=== PATIENT | male | born 1975 | race Caucasian/White ===

== ENCOUNTER → 2016-09-26 | Outpatient (CLI) | payer OTHER ==
[~2016-09-26] MED LIST: AMLO-110 PO; ATOR-14 PO; ATOR-22 PO; BUPR-267 PO; CITA20TA9 PO; CLOB-65 EXT; FLUO0.0121 TOP; FOLI1TAB7 PO; FOLIC ACID PO; GARL400T4 PO; LSN/2025 PO; OMEG10007 PO; OMEG12006 PO; OMEP20CA9 PO
--- NOTE | 2016-09-26 09:00 | DIAGNOSTIC IMAGING REPORT ---
GI SERIES W/AIR ROUTINE CLINICAL HISTORY: Gastroesophageal reflux disease. COMPARISON STUDY: None. FLUOROSCOPY TIME: 2.1 minutes. 21 images submitted. FINDINGS: The patient swallowed barium without difficulty. The esophagus is normal in course, caliber, motility. No hiatus hernia. No gastroesophageal reflux. The duodenal bulb and duodenal C sweep are within normal limits. Suggestion of mild gastric fold thickening. No gastric ulcerations. IMPRESSION: 1. No hiatus hernia. No gastroesophageal reflux demonstrated during the examination. 2. Suggestion of mild gastric fold thickening. This could represent a mild gastritis. Electronically signed by: Chris Bush M.D. 09/26/2016 8:27 AM Dictated Date/Time: 09/26/2016 8:24 AM
== END | disposition home or self-care (01) ==
LOC: C.RAD 07:47
PROVIDERS: ATTEND Surgery
DX: K21.9 Gastro-esophageal reflux disease without esophagitis (principal); R93.3 Abnormal findings on diagnostic imaging of other parts of digestive tract

== ENCOUNTER → 2016-11-25 | Day surgery (SDC) | payer OTHER ==
[2016-11-21 12:42] VITALS: Ht 175.3 cm; Wt 90.9 kg
[~2016-11-25] VITALS: Ht 175.3 cm; Wt 90.9 kg
[~2016-11-25] MED LIST changes: -ATOR-14 PO; -BUPR-267 PO; -CLOB-65 EXT; -FLUO0.0121 TOP; -FOLIC ACID PO; -GARL400T4 PO; +LIDOCAINE HCL 2% 2 ML VIAL (20MG/ML) ONE; +MIDAZOLAM HCL 1 MG/ML 2ML VIAL ONE; -OMEG12006 PO; +ONDANSETRON INJ 2 MG/ML 2 ML VIAL ONE; +PROPOFOL IV EMULSION 10 MG/ML 20 ML VIAL IV ONE; +SODIUM CHLORIDE 0.9% 500ML 500 ML IV ONE
--- NOTE | 2016-11-25 09:31 | Endo History and Physical ---
History & Physical Date of Service: Nov 25, 2016. Chief Complaint: Reflux Referring Physician: Romeo Lazo History of Present Illness reflux Past Surgical History Hx Cardiac Surgery: No Hx Internal Defibrillator: No Hx Pacemaker: No Hx Abdominal Surgery: Yes (RT/LEFT INGUINAL HERNIA) Hx of Implantable Prosthesis: No Hx Post-Op Nausea and Vomiting: No Hx Cancer Surgery: No Hx Thoracic Surgery: No Hx Orthopedic: No Hx Urinary Tract Surgery: No Family History Colon CA, IBD Social History Smoking Status: Current Every Day Smoker Hx Substance Use: No Hx Alcohol Use: Yes (OCCAS) Allergies Coded Allergies: No Known Allergies (Unverified , 11/21/16) Current Medications Reported Home Medications Medications Dose Route/Sig Max Daily Dose Days Date Category Folvite (Folic Acid) 1 Mg Tab 1 Mg PO QAM 11/21/16 Reported [place]-3 (Fish Oil) 1 Ea Cap 1 Cap PO QAM 11/21/16 Reported Lipitor (Atorvastatin Calcium) 20 Mg Tab 20 Mg PO QAM 11/21/16 Reported Celexa (Citalopram Hydrobromide) 20 Mg Tab 20 Mg PO QAM 11/21/16 Reported Prilosec (Omeprazole) 20 Mg Cap 20 Mg PO QAM 09/20/13 Reported Lisinopril/Hctz 20/25 Mg (HCTZ/Lisinopril) 1 Ea Tab 1 Tab PO QAM 09/20/13 Reported Norvasc (Amlodipine Besylate) 5 Mg Tab 5 Mg PO QAM 09/20/13 Reported Vital Signs Weight (Kilograms): 90.91 Height (Feet): 5 Height (Inches): 9 Date Time Temp Pulse Resp B/P Pulse Ox O2 Delivery O2 Flow Rate FiO2 11/25/16 09:14 37.1 77 20 145/90 95 Room Air Physical Exam General Appearance: WD/WN, no apparent distress Assessment and Plan EGD with RENNER off meds today
--- NOTE | 2016-11-25 09:57 | GI REPORT ---
Procedure Date: 11/25/2016 9:14 AM Procedure: Upper GI endoscopy Indications: Heartburn, Suspected esophageal reflux Medicines: Propofol per Anesthesia Complications: No immediate complications. Estimated blood loss: None. Estimated Blood Loss: Estimated blood loss: none. Procedure: Pre-Anesthesia Assessment: - Prior to the procedure, a History and Physical was performed, and patient medications, allergies and sensitivities were reviewed. The patient's tolerance of previous anesthesia was reviewed. - The risks and benefits of the procedure and the sedation options and risks were discussed with the patient. All questions were answered and informed consent was obtained. - Patient identification and proposed procedure were verified prior to the procedure by the physician and the nurse. The procedure was verified in the pre-procedure area in the procedure room. - Mental Status Examination: alert and oriented. Airway Examination: normal oropharyngeal airway and neck mobility. Respiratory Examination: clear to auscultation. CV Examination: normal. Abdominal Examination: bowel sounds present, abdomen soft and non-tender, no masses or organomegaly noted. - ASA Grade Assessment: II - A patient with mild systemic disease. After obtaining informed consent, the endoscope was passed under direct vision. Throughout the procedure, the patient's blood pressure, pulse, and oxygen saturations were monitored continuously. The scope was introduced through the mouth, and advanced to the second part of duodenum. The upper GI endoscopy was accomplished without difficulty. The patient tolerated the procedure well. Findings: The examined esophagus was normal. The RENNER capsule with delivery system was introduced through the mouth and advanced into the esophagus, such that the RENNER pH capsule was positioned 31 cm from the incisors, which was 6 cm proximal to the EG junction. Suction was applied to the well of the RENNER pH capsule to suck in the adjacent mucosa of the esophagus using the external vacuum pump set at a minimum vacuum pressure of 550 mmHg for 60 seconds. The RENNER pH capsule was then deployed by depressing the plunger on top of the handle to advance the locking pin into the mucosa, thereby attaching the capsule to the esophagus. The plunger was then rotated a quarter turn clockwise to release the capsule from the delivery system. The delivery system was then withdrawn. Endoscopy was utilized for probe placement and diagnostic evaluation. The stomach was normal. The examined duodenum was normal. Impression: - Normal esophagus. The RENNER pH capsule was positioned 31 cm from the naris, which was 6 cm proximal to the EG junction. - Normal stomach. - Normal examined duodenum. - No specimens collected. Recommendation: - Follow RENNER instructions. Study being done OFF reflux medications. - Return to referring physician as previously scheduled. - Discharge patient to home. Chyna Phan D.O. Chyna Phan, 11/25/2016 9:57:09 AM This report has been signed electronically. Note Initiated On: 11/25/2016 9:14 AM I attest to the content of the Intraoperative Record and orders documented therein, exceptions below
--- NOTE | 2016-11-25 10:00 | Discharge Instructions ---
Endoscopy Patient Instructions Date / Procedure(s) Performed Nov 25, 2016. EGD Allergy Information Coded Allergies: No Known Allergies (Unverified , 11/25/16) Discharge Date / Findings Nov 25, 2016. normal EGD; RENNER placed Medication Instructions Stopped Medication(s): Prilosec Restart Stopped Medication(s): Do NOT resume Prilosec until you turn in the RENNER recorder as above Provider Instructions Activity Restrictions - No exercising or heavy lifting for 24 hours. - Do not drink alcohol the day of the procedure. - Do not drive a car or operate machinery until the day after the procedure. - Do not make any important decisions or sign important papers in 24 hours after the procedure. Following Day: - Return to full activity which may include returning to work/school. Diet Start your diet with liquids and light foods (jello, soup, juice, toast). Then eat your usual diet if not nauseated. Treatment For Common After Affects For mild abdominal pain, bloating, or excessive gas: - Rest - Eat lightly - Lie on right side Follow-Up Information Follow-up with Roemo Lazo and Kota Taylor as scheduled Anesthesia Information What You Should Know You have had a procedure that required some medicine to reduce anxiety and discomfort. This treatment is called moderate sedation. After receiving the treatment, you may be sleepy, but you will be able to breathe on your own. The effects of the treatment may last for several hours. Follow these instructions along with Activity/Diet recommendations noted above: * Do NOT do anything where dizziness or clumsiness would be dangerous. * Rest quietly at home today, then you can be up and about tomorrow. * Have a responsible person stay with you the rest of today. * You may have had an I.V. today. If so, you may take the dressing off later today. Recommendations Call your doctor if: * Trouble breathing * Continuous vomiting for more than 24 hours * Temperature above 101 degrees * Severe abdominal pain or bloating * Pain not relieved by pain medicine ordered * There is increased drainage or redness from any incision * A large amount of rectal bleeding greater than 2-3 tablespoons. (If you had a polyp/s removed or have hemorrhoids, a small amount of blood - from the rectum is to be expected.) * You have any unanswered questions or concerns. IN THE EVENT OF A SERIOUS EMERGENCY, GO TO THE NEAREST EMERGENCY ROOM Your discharge instructions were prepared by provider Chyna Phan. Patient Instructions Signature Page Julio Bset Patient (or Guardian) Signature/Date: I have read and understand the instructions given to me by my caregivers. Caregiver/RN/Doctor Signature/Date: The above-named patient and/or guardian has received patient instructions on this date. + Original Patient Signature Page (only) stays with chart. Please make copy for patient.
[2016-11-25 10:26] VITALS: BP 135/90; PULSE 69; O2SAT 95
--- NOTE | 2016-11-25 11:25 | Anesthesiology Progress Note ---
Anesthesia Post Op Note Date & Time Nov 25, 2016 at 11:25 Vital Signs Pain Intensity: 0 Vital Signs Past 12 Hours Date Time Temp Pulse Resp B/P Pulse Ox O2 Delivery O2 Flow Rate FiO2 11/25/16 10:26 69 18 135/90 95 Room Air 11/25/16 10:11 70 18 138/83 95 Room Air 11/25/16 09:56 79 18 125/80 95 Room Air 11/25/16 09:14 37.1 77 20 145/90 95 Room Air Notes Mental Status: alert / awake / arousable, participated in evaluation Pt Amnestic to Procedure: Yes Nausea / Vomiting: adequately controlled Pain: adequately controlled Airway Patency, RR, SpO2: stable & adequate BP & HR: stable & adequate Hydration State: stable & adequate Anesthetic Complications: no major complications apparent
== END | disposition home or self-care (01) ==
LOC: C.GI 08:32
PROVIDERS: ATTEND Internal Medicine
DX: K21.9 Gastro-esophageal reflux disease without esophagitis (principal); I10 Essential (primary) hypertension; Z98.890 Other specified postprocedural states; G47.33 Obstructive sleep apnea (adult) (pediatric); F17.200 Nicotine dependence, unspecified, uncomplicated; Z68.29 Body mass index [BMI] 29.0-29.9, adult; Z80.0 Family history of malignant neoplasm of digestive organs

== ENCOUNTER → 2017-04-25 | Outpatient (CLI) | payer OTHER ==
[~2017-04-25] VITALS: Ht 174 cm; Wt 99.1 kg
[~2017-04-25] MED LIST changes: -LIDOCAINE HCL 2% 2 ML VIAL (20MG/ML) ONE; -MIDAZOLAM HCL 1 MG/ML 2ML VIAL ONE; -ONDANSETRON INJ 2 MG/ML 2 ML VIAL ONE; -PROPOFOL IV EMULSION 10 MG/ML 20 ML VIAL IV ONE; -SODIUM CHLORIDE 0.9% 500ML 500 ML IV ONE
[2017-04-25 14:39] VITALS: BP 140/103; PULSE 87; Ht 174 cm; Wt 99.1 kg
== END | disposition home or self-care (01) ==
LOC: C.NEUR 13:50
PROVIDERS: ATTEND Physician Assistant
DX: G47.33 Obstructive sleep apnea (adult) (pediatric) (principal)

== ENCOUNTER → 2018-04-23 | Outpatient (CLI) | payer BC ==
[~2018-04-23] VITALS: Ht 174 cm; Wt 103.6 kg
[~2018-04-23] MED LIST changes: -AMLO-110 PO; +AMLO5TAB3 PO; -FOLI1TAB7 PO; +FOLI1TAB8 PO; +LISI20TA11 PO; -LSN/2025 PO
[2018-04-23 14:45] VITALS: BP 125/64; PULSE 85; Ht 174 cm; Wt 103.6 kg
== END | disposition home or self-care (01) ==
LOC: C.NEUR 14:23
PROVIDERS: ATTEND Physician Assistant
DX: G47.33 Obstructive sleep apnea (adult) (pediatric) (principal); G47.21 Circadian rhythm sleep disorder, delayed sleep phase type